=== PATIENT | female | born 1950 | race Caucasian/White ===

== ENCOUNTER 2024-05-12 15:35 | Outpatient (CLI) | payer MEDICARE, OTHER, SELFPAY ==
--- NOTE | 2024-05-12 16:05 | DI.RAD_ITS ---
Exam(s) XR KNEE RT 3V AP,LAT,DAVID EXAM: XR KNEE RT 3V AP,LAT,DAVID CLINICAL HISTORY: BILATERAL KNEE PAIN. TECHNIQUE: 2D digital imaging was performed. COMPARISON: No exams were available for comparison FINDINGS: 3 views No evidence of fracture. Small amount of increased joint fluid. There is advanced narrowing of the medial compartment of the right knee, almost [id number] and ther e marginal osteophytes in the medial compartment noted. Minimal narrowing of the lateral compartment . There are advanced degenerative changes in the patellofemoral compartment with joint space narrowing and also prominent bony excrescence-osteophyte off the posterior aspect of the superior pole of the p atella. The inferior pole the patella appears unremarkable. IMPRESSION: Advanced degenerative changes in the right knee as described above. DATA REPOSITORY: RADIATION DOSE DELIVERED:
--- NOTE | 2024-05-12 16:06 | DI.RAD_ITS ---
Exam(s) XR KNEE LT 3V AP,LAT,DAVID EXAM: XR KNEE LT 3V AP,LAT,DAVID CLINICAL HISTORY: BILATERAL KNEE PAIN. TECHNIQUE: 2D digital imaging was performed. COMPARISON: CR XR KNEE RT 3V AP,LAT,DAVID from 05/12/2024 FINDINGS: 3 views No evidence of fracture although there does appear to be a joint effusion. There is advanced degenerative change in the left knee. There is [id number] narrowing of the media l compartment and marginal osteophytes. Also advanced degenerative changes in the patellofemoral com partment. There is only mild narrowing of the lateral compartment but there are marginal osteophytes off the outer aspect of the lateral femoral condyle and lateral tibial plateau evident. No osseous lesions. IMPRESSION: Severe osteoarthritic degenerative changes in the left knee as described above. DATA REPOSITORY: RADIATION DOSE DELIVERED:
--- NOTE | 2024-05-12 16:06 | DI.RAD_ITS ---
Exam(s) XR STANDING ALIGNMENT EXAM: XR STANDING ALIGNMENT CLINICAL HISTORY: BILATERAL KNEE PAIN. TECHNIQUE: 2D digital imaging was performed. COMPARISON: No exams were available for comparison FINDINGS: 3 views There are advanced degenerative changes in both knees. In the medial compartment of the left knee th ere is [id number] narrowing. There are marginal osteophytes off the lateral compartment of the lef t knee but relatively preserved height of the lateral compartment. There is moderate-advanced narrow ing of the medial compartment of the opposite-right knee and relatively preserved height of the later al compartment of the right knee although with marginal osteophytes also evident at this level. Both hips appear unremarkable as do the ankles. Bone density is normal. No osseous lesions. IMPRESSION: Advanced osteoarthritic degenerative changes in both knees. The most prominent narrowing is bone-on- bone in the medial compartment of the left knee. DATA REPOSITORY: RADIATION DOSE DELIVERED:
== END 2024-05-12 15:36 | disposition home or self-care (01) ==
LOC: DIORS 15:36
PROVIDERS: PCP Nurse Practitioner Family; Referring Provider Nurse Practitioner Family; Visit Provider Physician Assistant
DX: M17.11 Unilateral primary osteoarthritis, right knee; M17.12 Unilateral primary osteoarthritis, left knee
CPT/HCPCS: 73562; 99214; 77073

== ENCOUNTER → 2024-12-15 09:16 | Outpatient (BNVA) | payer MEDICARE, OTHER, SELFPAY | PROVIDERS: PCP Nurse Practitioner Family; Referring Provider Nurse Practitioner Family; Visit Provider Student in an Organized Health Care Education/Training Program | DX: M17.0 Bilateral primary osteoarthritis of knee (principal) | CPT/HCPCS: 99214 ==

== ENCOUNTER → 2024-12-29 13:28 | Outpatient (BNVA) | payer MEDICARE, OTHER, SELFPAY | PROVIDERS: PCP Nurse Practitioner Family; Referring Provider Nurse Practitioner Family; Visit Provider Physician Assistant | DX: Z01.818 Encounter for other preprocedural examination (principal); M17.0 Bilateral primary osteoarthritis of knee | CPT/HCPCS: 99024 ==

== ENCOUNTER 2024-12-29 16:18 | Outpatient (REF) | payer MEDICARE, OTHER, SELFPAY ==
[2024-12-29 18:09] LABS: HCT 43.5 % (36.0-46.0); HGB 13.7 g/dL (11.2-15.7); MCH 28.2 pg (27.0-33.0); MCHC 31.5 % (32.0-36.0); MCV 90 fL (80-95); MPV 10.9 fL (8.0-11.0); Platelet Count 234 10^3/uL (130-400); RBC 4.86 10^6/uL (3.93-5.22); RDW 14.9 % (11.7-14.6); RDW-SD 49.1 fL; WBC 5.56 10^3/uL (4.4-10.8)
[2024-12-29 18:29] LABS: Anion Gap 9.2 mmol/L (3-11); BUN 27 mg/dL (7-18); CO2 27.8 mmol/L (21.0-32.0); Calcium 9.2 mg/dL (8.5-10.1); Chloride 106 mmol/L (98-107); Estimated GFR 59.49 (mL/min/1.73m2); Glucose 88 mg/dL (74-106); Potassium 4.0 mmol/L (3.5-5.1); Sodium 143 mmol/L (136-145)
== END 2024-12-29 16:19 | disposition home or self-care (01) ==
LOC: LBN 16:18
PROVIDERS: PCP Nurse Practitioner Family; Visit Provider Student in an Organized Health Care Education/Training Program
DX: M17.12 Unilateral primary osteoarthritis, left knee (principal); Z01.818 Encounter for other preprocedural examination
CPT/HCPCS: 80048; 85027

== ENCOUNTER 2025-01-11 07:15 | Observation (INO) | payer MEDICARE, OTHER, SELFPAY ==
[2025-01-11] VITALS (23 sets, daily range): BP systolic 102–149; BP diastolic 62–126; PULSE 67–98; RESP 13–35; TEMP 36.1–36.8; O2SAT 91–98; BMI 45.6
[2025-01-11] MEDS: Gabapentin 300 MG CAP PO ×2 (08:06→20:30)
[2025-01-11] MEDS: Acetaminophen 500 MG TAB 1000 MG PO ×2 (08:06→15:09)
[2025-01-11] MEDS: Celecoxib 200 MG CAP 400 MG PO (08:07)
--- NOTE | 2025-01-11 08:14 | W.ANESPRE ---
General Info Date of Service Date Performed: 01/11/25 Height: 5 ft 1.75 in Weight: 112.1 kg Body Mass Index (BMI): 45.6 Surgical Procedure: Operation Date: 01/11/25 09:40 Proposed Procedure Side Surgeon p Knee Total Arthroplasty w/OrthAlign Left Trevor Lugo MD Meds Allergies and Home Medications Allergies Allergy/AdvReac Type Severity Reaction Status Date / Time ciprofloxacin (From Cipro) Allergy Mild Unknown Verified 01/11/25 07:54 nickel Allergy Mild rash Verified 01/09/25 14:28 Penicillins Allergy Mild Unknown Verified 01/11/25 07:54 petrolatum,white (From Allergy Mild rash Verified 01/09/25 14:28 Petroleum Jelly) rice Allergy Mild Hives Verified 01/11/25 07:54 Tetracyclines Allergy Mild rash Verified 01/09/25 14:28 oxycodone AdvReac Mild GI upset Verified 01/09/25 14:28 Home Medication Medication Instructions Recorded albuterol sulfate 90 mcg/actuation 2 puff inhalation QID 04/26/24 aerosol inhaler ascorbic acid (vitamin C) 500 mg 500 mg PO DAILY 04/26/24 capsule meloxicam 15 mg tablet 15 mg PO DAILY 04/26/24 levothyroxine 137 mcg capsule 137 mcg PO DAILY 12/15/24 simvastatin 10 mg tablet 10 mg PO DAILY 12/15/24 vitamin D3 250 mcg (10,000 1 cap PO DAILY 12/29/24 unit)-vitamin K2 45 mcg capsule Current Visit Medications: Current Medications Generic Name Dose Route Start Last Admin Trade Name Freq PRN Reason Stop Dose Admin Acetaminophen 1,000 mg 01/11/25 06:00 01/11/25 08:06 Acetaminophen 500 Mg Tab PO 02/09/25 23:59 1,000 mg PREOP JONNATHAN Administration Acetaminophen 1,000 mg 01/11/25 08:30 Acetaminophen 500 Mg Tab PO 02/10/25 08:29 TID JONNATHAN Albuterol Sulfate 2 puff 01/11/25 08:30 Albuterol Hfa 8 Gm 60 Puff Inh IH 02/10/25 08:29 QID JONNATHAN Aspirin 81 mg 01/11/25 20:00 Aspirin E.C. 81 Mg Tabec PO 02/10/25 19:59 BID JONNATHAN Celecoxib 400 mg 01/11/25 06:00 01/11/25 08:07 Celecoxib 200 Mg Cap PO 02/09/25 23:59 400 mg PREOP JONNATHAN Administration Dexamethasone 4 mg 01/11/25 08:30 Dexamethasone 4 Mg Tab PO 01/12/25 08:31 DAILY JONNATHAN Docusate Sodium 100 mg 01/11/25 07:15 Docusate Sodium 100 Mg Cap PO 02/10/25 07:14 BID PRN PRN Constipation Gabapentin 300 mg 01/11/25 06:00 01/11/25 08:06 Gabapentin 300 Mg Cap PO 02/09/25 23:59 300 mg PREOP JONNATHAN Administration Gabapentin 300 mg 01/11/25 20:00 Gabapentin 300 Mg Cap PO 02/10/25 19:59 HS JONNATHAN Ringer's Solution 1,000 mls @ 80 mls/hr 01/11/25 06:00 IV 02/09/25 23:59 INFUSION JONNATHAN Cefazolin Sodium/Dextrose 2 gm in 50 mls @ 100 mls/hr 01/11/25 06:00 Ancef Duplex IVPB 02/09/25 23:59 PREOP JONNATHAN Tranexamic Acid/Sodium Chloride 1,000 mg in 100 mls @ 600 mls/hr 01/11/25 06:00 IVPB 02/09/25 23:59 PREOP JONNATHAN Cefazolin Sodium/Dextrose 1 gm in 50 mls @ 100 mls/hr 01/11/25 10:00 Ancef Duplex IVPB 01/12/25 02:29 Q8H JONNATHAN IV Miscellaneous Supplies 1 each 01/11/25 06:00 Iv Access IV 02/09/25 23:59 DIRECTED JONNATHAN Meloxicam 15 mg 01/11/25 08:30 Meloxicam 15 Mg Tab PO 02/10/25 08:29 DAILY [facility] Non-Formulary Medication 500 mg 01/11/25 08:30 Ascorbic Acid (Vitamin C) PO 02/10/25 08:29 DAILY JONNATHAN Non-Formulary Medication 137 mcg 01/11/25 08:30 Levothyroxine PO 02/10/25 08:29 DAILY [facility] Non-Formulary Medication 1 cap 01/11/25 08:30 Vitamin D3-Vitamin K2 PO 02/10/25 08:29 DAILY [facility] Ondansetron HCl 4 mg 01/11/25 07:15 Ondansetron 4 Mg/2 Ml Vial IVP 02/10/25 07:14 Q6H PRN PRN Nausea Oxycodone HCl 0 mg 01/11/25 07:15 Oxycodone 5 Mg Tab PO 02/10/25 07:14 Q3H PRN PRN Pain Pantoprazole Sodium 40 mg 01/11/25 07:30 Pantoprazole 40 Mg Tabcr PO 02/10/25 07:29 DAILY@0730 JONNATHAN Polyethylene Glycol 17 gm 01/11/25 07:15 Polyethylene Glycol 3350 17 Gm Packet PO 02/10/25 07:14 BID PRN PRN Constipation Simvastatin 10 mg 01/11/25 08:30 Simvastatin 10 Mg Tab PO 02/10/25 08:29 DAILY JONNATHAN Sodium Chloride 0 ml 01/11/25 06:00 Normal Saline Flush 10 Ml Syr IV 02/09/25 23:59 PRN PRN Sodium Chloride 0 ml 01/11/25 06:00 Normal Saline 10 Ml Vial IJ 02/09/25 23:59 DIRECTED PRN Sterile Water 0 ml 01/11/25 06:00 Water,Injection,Sterile 10 Ml Vial IJ 02/09/25 23:59 DIRECTED PRN Tranexamic Acid 1,300 mg 01/11/25 07:15 Tranexamic Acid 650 Mg Tab PO 01/11/25 07:16 ONCE ONE PFSH Active Problems Active Problems: Problem Status Onset Code Osteoarthritis of knees, bilateral Acute M17.0 Disorder of thyroid gland Acute E07.9 Chronic pain Chronic G89.29 Medical History Medical History No blood products Will take blood UNLESS: Pt. stated if she were to need blood for any reason, she does not want and will not take blood from a COVID vaccinated person and wanted it to be noted a s such. If they are vaccinated pt will take NO blood at all. Asthma Hypothyroid Medical History Comments:: Pt. stated if she were to need blood for any reason, she does not want and will not take blood from a COVID vaccinated person and wanted it to be noted a s such. If they are vaccinated pt will take NO blood at all. Surgical History Surgical History (Updated 01/11/25 @ 08:40 by Jackie Moe RN) History of abdominal surgery Repair of small bowel with mesh. History of colonoscopy H/O total vaginal hysterectomy History of arthroplasty of left shoulder (08/27/22) Tobacco Smoking/Tobacco Use Status: Never Passive smoking exposure: No Alcohol Alcohol Intake: never Substance Use Substance use: Never Substance use type: does not use Vital Signs and Lab Results Vital Signs Most Recent Vital Signs in EMR: Most Recent Vital Signs Temp Pulse Resp BP Pulse Ox 36.7 C 70 20 119/74 97 01/11/25 07:40 01/11/25 07:40 01/11/25 07:40 01/11/25 07:40 01/11/25 07:40 Lab Results Complete Blood Count: WBC, (4.4-10.8) 5.56 10^3/uL 12/29/24, 15:10 RBC, (3.93-5.22) 4.86 10^6/uL 12/29/24, 15:10 Hgb, (11.2-15.7) 13.7 g/dL 12/29/24, 15:10 Hct, (36.0-46.0) 43.5 % 12/29/24, 15:10 Plt Count, (130-400) 234 10^3/uL 12/29/24, 15:10 Complete Metabolic Panel: Sodium, (136-145) 143 mmol/L 12/29/24, 15:10 Potassium, (3.5-5.1) 4.0 mmol/L 12/29/24, 15:10 Chloride, (98-107) 106 mmol/L 12/29/24, 15:10 Carbon Dioxide, (21.0-32.0) 27.8 mmol/L 12/29/24, 15:10 BUN, (7-18) 27 mg/dL H 12/29/24, 15:10 Creatinine, (0.55-1.02) 1.0 mg/dL 12/29/24, 15:10 Est GFR (CKD-EPI 2020), (mL/min/1.73m2) 59.49 12/29/24, 15:10 Calcium, (8.5-10.1) 9.2 mg/dL 12/29/24, 15:10 Glucose, (74-106) 88 mg/dL 12/29/24, 15:10 Anesthesia Assessment and Plan Anesthesia History Personal History: No History of Anesthesia Complications Family History: No Family History of Anesthesia Complications and Family History Unknown Exercise Tolerance Exercise Tolerance: Metabolic Equivalents<4 Pertinent Negatives Pertinent Negatives: No Symptoms of GERD, No Major Cardiovascular Symptoms or Complaints, No Major Pulmonary Symptoms or Complaints and No History of CVA/TIA Cardiac & Pulmonary Exam Cardiac Exam: Normal S1/S2 Heart Sounds Pulmonary Exam: Clear Bilateral Breath Sounds Implantable Cardiac Device Does patient have a Pacemaker or an ICD?: No Airway Exam Known Difficult Airway: No Mallampati Class: 4 Mouth Opening: Normal (> 3cm) Thyromental Distance: Greater than 3 cm Neck Range of Motion: Full ROM Neck Circumference: Normal Teeth Condition: Normal Dentition (prominent inscisors with permanent bridges on either side, states it is stable) ASA Classification ASA Score: ASA 3 Emergency Case?: No NPO Status NPO Status: NPO Clears >2 hours, Solids >8 hours Anesthesia Plan Resuscitation Status: Full Code Anesthesia Technique: Spinal Anesthesia Airway Planned: Natural Airway Pain Management: Surgeon and patient request nerve block Monitors Used: Standard Monitors
[2025-01-11] MEDS: Lactated Ringers 1,000 ML 80 ML IV ×2 (08:30→15:18)
--- NOTE | 2025-01-11 08:54 | W.ANESNERVE ---
Nerve Block Single Injection Procedure Date and Time Date Performed: 01/11/25 Procedure Start: 08:40 Location Where Procedure Performed Procedure Location: Day Surgery Unit Reason Performed: Postoperative Analgesia Requesting Provider: Trevor Lugo Timeout Performed Timeout Performed: Yes Monitoring Used ECG, Blood Pressure and SpO2 Sterility Sterility: Hand Hygiene, Surgical Cap, Surgical Mask, Sterile Gloves, Sterile Drape/Sheet and Chlorhexidine Sedation Given During Procedure Sedation Given (Indicate Dose Given): Versed IV Dose:: 2mg Patient Mental Status Patient Mental Status: Sedate with meaningful communication Nerve Block 1st Nerve Block: Laterality: Left Block Type: Adductor Canal Ultrasound Image Saved?: Yes Needle / Catheter Used: 100mm SonoPlex II Local Anesthetic Bolus (Indicate Dose Given): Lidocaine used for local infiltration of skin, Bupivacaine 0.25% Dose:: 10ml and Exparel Dose:: 10ml Additives (Indicate Dose Given): None Ultrasound: Sterile probe cover and gel used Nerve Stimulator: Primary Nerve Stimulator Technique and No twitch or parasthesia noted < 0.5 mA Paresthesia: None Procedure Tolerated: No Complications and Patient tolerated well Procedure Outcome: Successful Performed By: Tamiko Maloney Supervised By: Mena Mathis
[2025-01-11] MEDS: ceFAZolin 2 GM/50 ML BAG IVPB (09:35)
--- NOTE | 2025-01-11 09:43 | W.PM.OP ---
Operative Note Operative Note PRE-OP DIAGNOSIS: Left Knee Osteoarthritis POST-OP DIAGNOSIS: same PROCEDURE: Left Total Knee Replacement with Intraoperative Navigation SURGEON: Trevor Lugo SYSTEMS DESIGNER: Mushtaq Burgos ANESTHESIA TYPE: Spinal Refer to Anesthesia Record ESTIMATED BLOOD LOSS: 150 PATHOLOGY: none sent TOURNIQUET TIME: 0 COMPLICATIONS: None Patient was transported to: PACU Patient's condition: stable Implants: 1. Depuy Attune Cementless Cruciate Retaining Femoral Component, Size 7 2. Depuy Attune Cementless Fixed Bearing Tibial Component, Size 5 3. Depuy Attune 7x10mm CR/FB Poly 4. Depuy Attune Patellar Component, Size 38 mm Indications: I have seen Aleah Nye in clinic for symptoms of LEFT knee arthritis, confirmed with radiographic findings. Aleah has exhausted nonoperative methods and was having significant limitations in daily function and desired better function and less pain. I discussed the technical details of a knee replacement. I explained the risks of the procedure to include, but not limited to, bleeding, infection, pain, stiffness, fracture, damage to nerves and vessels, damage to muscles and tendons, loosening, need for repeat procedure, blood clot and cardiopulmonary demise. Despite these risks, Aleah elected to proceed. Findings: There was significant signs of arthritis throughout the knee with large osteophytes throughout. Procedure Description: Aleah Nye was greeted in the preoperative holding area where the correct side was identified and marked. The consent was reviewed with the patient and signed. The history and physical was updated. All questions were answered. Preoperative mediacations were administered: Acetaminophen 1000mg, Celebrex 400mg, Gabapentin 300mg, and Oxycontin 10mg. An adductor canal block was then administered by the anesthesia team in the [facility]. She was taken back to the operating room. A spinal anesthestic was then administered. The patient was placed into the supine position on the operating room table. A nonsterile tourniquet was placed high onto the leg but only used for cementing. Posts were placed for positioning during the procedure. All bony prominences were well padded. Prophylactic antibiotics in the form of Cefazolin were administered. 1g of Tranxemic Acid was given intravenously within 30 minutes of incision. The left leg was then prepped with Chloraprep and draped in a standard fashion with impervious stockinette and extremity drape with Iodine impregnated skin protection. A timeout to confirm correct identity, side and site, procedure, allergies, anesthesia, and medical concerns was performed. With the knee in some flexion, a midline incision was made overlying the knee. Full thickness skin flaps were raised once the extensor mechanism was encountered. These were raised medially and laterally. Any bleeding was controlled with electrocautery. Once the extensor mechanism was fully exposed, a medial parapatellar arthrotomy was performed in a flexed position. All bleeding from the arthrotomy and the geniculate arteries was coagulated. A medial subperiosteal peel was performed with electrocautery to the midcoronal plane. Due to the significant varus deformity the entire medial tibial plateau was exposed. The fat pad was removed while keeping the patellar tendon protected. The anterior distal femur synovium was removed for later visualization. The ACL and PCL were resected and the anterior horn of the lateral meniscus was transected. The knee was then flexed with the patella everted. Large osteophytes from the tibia were removed. Large osteophytes from the femur were removed. A single starting pin was then placed 1cm anterior to the PCL insertion and the notch in the direction of the femoral head. The OrthoAlign device was applied over the pin. It was oriented to be in line with the epicondylar axis and the trochlear groove. It was then pinned into place. The navigation computer was then turned on and calibrated. The distal femur cut was set at 0.5 degrees varus and 3.5 degrees flexion. The distal femur cutting guide then was positioned for a 9mm cut. The distal femur was cut with an oscillating saw while protecting the soft tissues. The tibia was then addressed. The OrthoAlign device was placed over the tibial tubercle and medial tibia and secured into position. Once again, OrthoAlign was calibrated and then set for a 2 deg varus cut and 5 degrees of posterior slope. With this locked into position, the cut thickness stylus was used to assess cut thickness. The medial side, most involved side, was set for a 3mm cut. This was then held in position and pinned into place with 2 additional pins and a cross pin for stability. The medial and lateral collateral ligaments were protected and the cut was performed. With this completed, it was assessed and noted to be of appropriate dimensions. The guide and OrthoAlign was removed. The Orthoalign gap balancing device was then placed in extension. This was used to ensure that the ligaments were properly balanced with up to 2 to 3 mm laxity laterally compared medially. The extension gap was measured as 21mm. The knee was then brought into 90 degrees of flexion and the ligament public works commissioner was once again placed. Under the same amount of force the flexion gap was measured. The Attune specific jig was placed and the flexion gap was made to match the extension gap. The distal femur was then sized. The anterior stylus was placed onto the lateral ridge of the anterior femur. This indicated a size 7 femur. The 4-in-1 cutting guide was the placed. The posterior medial femur cut was evaluated and appeared of good thickness. The spacer block was inserted underneath the cutting guide and stability was confirmed in 90 degrees of flexion. An belem wing was used to confirm appropriate position of the anterior cut to avoid notching. This cutting guide was ensured to be flush on the cut surface and then pinned into place with headed pins. While protecting the soft tissues, quad tendon, and collateral ligaments, the anterior and posterior cuts were performed with a saw. The central two pins were removed and the posterior and anterior chamfers were cut next. The notch-cutting guide was placed. This was pinned to lateralize the femoral component as much as possible while keeping it flush on the cut surface. This was then pinned into position. A saw was used to make the notch cut. A rasp smoothed the cut surfaces. A trial femoral component was then inserted, impacted down to the cut surfaces, and the lug holes were drilled. A provisional trial tibial component was placed and the knee was brought through range of motion. The polyethylene was trialed until there was good flexion and extension with excellent stability to the medial and lateral collaterals. The patella was tracking without thumbs. The tibial cut surface was fully exposed. The medial and lateral menisci were removed. The tibia was then sized as a 5. The tibia had been previously marked during trialing to correspond to the center of the tibial component to help with rotation. The trial was aligned to this mushtaq, approximately rotated to the medial 1/3rd of the tibial tubercle. The trial was pinned into place. The tibia was prepared with a reamer and a keel punch. The knee was then brought into extension and the patella was measured as 24mm. Using the patellar clamp and cut guide, this was resected to a flat surface with at least 13mm of thickness remaining. The size 38mm patella fit the best. This was oriented and then clamped into position. The lugs were drilled. The trial components were removed. The final components, except for the polyethylene were opened on the back table. The periosteal and capsular tissues, especially posteriorly, around the knee were then systematically injected with a periarticular cocktail consisting of 200mg of Ropivacaine, 0.5mg of Epinephrine, and 30mg of Ketorolac, diluted to 100cc. The knee was thoroughly irrigated and dried. On the back table, with the implants opened, the cement was mixed. 2 batches of medium viscosity cement were prepared with vacuum assistance. After the cement was ready a small amount was placed on to the back side of the tibial component at the keel. A small amount was placed onto the posterior flange of the femur. Cement was manual pressurized and impregnated into the cut surface of the tibia. The tibial component was then inserted into the cut surface and impacted into position. Excess cement was removed and the component was reimpacted. Again, excess cement was removed and our attention was then turned to the femur. The femoral cut surface was once again dried and cement was manually impacted into the cut surface. The femoral component was lined with the lug holes and impacted. Excess cement was removed. It was ensured to be down against the cut surface. The trial polyethylene was then inserted and the leg was brought out into full extension for the duration of the cement curing process, approximately 15min. Cement was lastly manually impacted into the cut surface of the patella and the patellar button was clamped into position and held. During this process attention was turned to the gutters of the knee and for all interfaces for any excess cement. The knee was then thoroughly irrigated with Surgiphor Betadine solution. It was allowed to sit in the knee for 3 minutes before being irrigated out with saline. After the cement had finally cured, approximately 15min, the clamp was removed from the patella and the knee was taken through range of motion. A size 10mm polyethylene component provided the best range of motion and stability with less than 2mm gapping with medial and lateral stress and full extension without significant hyperextension. The patella was tracking with a no-thumbs technique. The trial poly was removed and once again the knee was checked for any loose, excess, or errant cement. The poly component was then inserted into position after cleaning and drying the tibial tray. The capsule was then reapproximated with a No. 2 Fiberwire and No. 1 Vicryl at multiple locations. The capsule was finally closed with a No. 2 Stratafix, barbed suture. Deep tissues were then reapproximated with 0 Vicryl and 2-0 Vicryl. The skin was closed with a running 3-0 Monocryl in a subcuticular fashion. This was reinforced with skin glue. A Mepilex silver dressing was applied along with a [id number] VALENTIN wrap. A CryoCuff was applied. Aleah Nye was transferred to the hospital bed without difficulty an suffering no apparent complication. Aleah Nye has a good prognosis. Physical therapy will start today and without restrictions, weight-bearing as tolerated. Aspirin 81mg BID will be used for DVT prophylaxis. Date of Procedure: 01/11/25
[2025-01-11] MEDS: TRANEXAMIC ACID/SOD. CHL. 1,000 MG/100 ML BAG 600 MG IVPB (09:44)
--- NOTE | 2025-01-11 10:02 | NUR.NOTE ---
0720: Pt. arrived in [facility] accompanied by alf Pedraza/sugar and Namrata Ramos RN. This nurse met pt. at scale where pt. stated to this nurse don't let Bobby near me this nurse asked who is Bobby. Pt. replied Dr. Lugo's helper. 0725:MD in room to consent pt. and said same thing to MD. MD explained to pt, that Bobby was part of the OR team today and his right hand man. MD sat down and had a conversation with pt. and made it clear that surgery could not happen today if Bobby is not part of the team and allowed pt. to choose if she was going to cancel or have surgery with Bobby on the team. Pt. nodded understanding and said ok and proceeded to sign consent in presence of , this nurse, Namrata Ramos, RN and Diya wooten/alf.Nursing Note:
[2025-01-11] MEDS: Ketorolac 30 MG/ML VIAL (10:14)
[2025-01-11] MEDS: ROPIvacaine 0.2% 200 MG/100 ML BAG (10:14)
[2025-01-11] MEDS: EPINEPHrine 1 MG/ML AMP pres-free (10:14)
--- NOTE | 2025-01-11 10:16 | NUR.NOTE ---
Nursing Note: 0715 I met patient in waiting room, accompanied by her friend Diya. Patient started ambulating to DSU with 2 walking canes. Upon entering doorway to DSU, patient stated don't let that Bobby near me to which this nurse asked who she was referring to. Patient stated that Bobby was Dr Lugo's PA. I did not respond to this statement. Patient continued to ambulate to scale to be weighed where Dao Badillo RN, primary nurse met patient. Patient reiterated the sentiment about Bobby again. Patient then ambulated to room 215 where Dao Badillo RN started intake and I, Namrata Whitley, assisted with vital signs. Dr Lugo then entered room and sat across from patient to discuss surgery and answer questions. Patient again made statement referring to Bobby Burgos, not to let him near her. Dr. Lugo was direct to state that Bobby would be assisting him to day in the operating room and patient given choice to proceed or cancel surgery. Pt responded yes to wanting to have surgery today. MD finished reviewing consent and answering questions. Patient then signed consent with MD. Dao Badillo RN and patient's friend Diya were also present in room.
--- NOTE | 2025-01-11 13:31 | W.ANESPOSTOP ---
Postoperative Evaluation Date, Time and Location Date Performed: 01/11/25 Time Performed: 12:36 Patient Location: PACU Vital Signs Most Recent Imported Vital Signs: Most Recent Vital Signs Temp Pulse Resp BP Pulse Ox 36.6 C 83 15 149/88 H 96 01/11/25 12:40 01/11/25 12:40 01/11/25 12:40 01/11/25 12:40 01/11/25 12:40 Pain Score Most Recent Pain Score: Most Recent Pain Score Pain Level 0 01/11/25 12:46 Assessment Mental Status: Awake (Alert & Oriented to Patient Baseline) Airway and Respiratory Function: Patent airway with normal (patient baseline) respiratory exam Cardiovascular Function: Hemodynamically Stable Hydration Status: Adequately Hydrated Nausea & Vomiting: No Nausea or Vomiting Pain: Pain is tolerable per patient Peripheral Nerve Block: Regional nerve block not resolved at time of post operative discharge
--- NOTE | 2025-01-11 14:05 | W.PC.ACHO ---
Registration Status: ADM AMAN Primary Language: Preferred Language: Medical / Surgical History (Last Reviewed 01/11/25 @ 08:01 by Safia Badillo) No blood products Asthma Hypothyroid (Last Reviewed 01/11/25 @ 08:01 by Safia Badillo) History of abdominal surgery History of colonoscopy H/O total vaginal hysterectomy History of arthroplasty of left shoulder (08/27/22) Most Recent Vital Signs Temperature 36.2 C L 01/11/25 13:50 Temperature Source Temporal Artery Scan 01/11/25 13:50 Pulse 72 01/11/25 13:50 Pulse Rhythm Regular 01/11/25 13:48 Pulse 83 01/11/25 12:40 Respiratory Rate 16 01/11/25 13:50 Respiratory Effort Normal 01/11/25 13:48 Respiratory Depth Normal 01/11/25 13:48 Respiratory Pattern Normal 01/11/25 13:48 Blood Pressure 138/74 01/11/25 13:50 Blood Pressure Mean 95 01/11/25 13:50 Blood Pressure Position Supine 01/11/25 08:56 Pulse Oximetry 95 01/11/25 13:50 Respiratory End-tidal CO2 32 01/11/25 12:40 Oxygen Delivery Method Room Air 01/11/25 13:50 Oxygen Flow Rate 0 01/11/25 13:50 Pain Level 0 01/11/25 13:50 Comment 0850: post block vitals. Pt. denies ringing in her ears, numbness around her mouth or metallic taste in mouth. MORTGAGE LOAN COMPUTATION CLERK and SRNA in room. Pt. on central monitor. This nurse in room. Call pablo within reach. 0927: Pt. taken via stretcher by Yolanda Hernandez RN to OR. 01/11/25 08:56 Allergies ciprofloxacin (From Cipro) Allergy (Mild, Verified 01/11/25 07:54) Unknown rash nickel Allergy (Mild, Verified 01/09/25 14:28) rash Penicillins Allergy (Mild, Verified 01/11/25 07:54) Unknown as a kid pt reports a seizure petrolatum,white (From Petroleum Jelly) Allergy (Mild, Verified 01/09/25 14:28) rash rice Allergy (Mild, Verified 01/11/25 07:54) Hives wild rice Tetracyclines Allergy (Mild, Verified 01/09/25 14:28) rash oxycodone Adverse Reaction (Mild, Verified 01/09/25 14:28) GI upset Active Medications Generic Name Dose Route Start Last Admin Trade Name Jamison PRN Reason Stop Dose Admin Acetaminophen 1,000 mg 01/11/25 06:00 01/11/25 08:06 Acetaminophen 500 Mg Tab PO 02/09/25 23:59 1,000 mg PREOP JONNATHAN Administration Celecoxib 400 mg 01/11/25 06:00 01/11/25 08:07 Celecoxib 200 Mg Cap PO 02/09/25 23:59 400 mg PREOP JONNATHAN Administration Gabapentin 300 mg 01/11/25 06:00 01/11/25 08:06 Gabapentin 300 Mg Cap PO 02/09/25 23:59 300 mg PREOP JONNATHAN Administration Ringer's Solution 1,000 mls @ 80 mls/hr 01/11/25 06:00 01/11/25 12:28 IV 02/09/25 23:59 80 mls/hr INFUSION JONNATHAN Infusion Cefazolin Sodium/Dextrose 2 gm in 50 mls @ 100 mls/hr 01/11/25 06:00 01/11/25 09:44 Ancef Duplex IVPB 02/09/25 23:59 Infused PREOP JONNATHAN Infusion Tranexamic Acid/Sodium Chloride 1,000 mg in 100 mls @ 600 mls/hr 01/11/25 06:00 01/11/25 09:54 IVPB 02/09/25 23:59 Infused PREOP JONNATHAN Infusion IV IV Catheter Type [Right Hand] Peripheral IV IV Catheter Gauge [Right Hand] 20 Intake and Output - 24 Hour Total 12/16/24 09:27 thru 01/11/25 13:48 Intake Total 1050 Output Total 150 Balance 900 Weight 112.1 kg Intake: IV 1050 Output: Estimated Blood Loss 150 Other: Urine Appearance Clear Emesis Description None Falls Risk Assessment History of Falls No History 01/11/25 13:48 Contributing Factors No Factors 01/11/25 13:48 Ambulatory Aids Uses ambulatory device 01/11/25 13:48 Tubes/Lines None 01/11/25 13:48 Gait Evaluation No gait disturbance 01/11/25 13:48 Cognition No cognitive impairment 01/11/25 13:48 Fall Total Score 15 01/11/25 13:48 Level of Risk Standard/Low Risk 01/11/25 13:48 Notes 01/11/25 10:16 Nursing Notes by Day,Namrata Nursing Note: 0750 I met patient in waiting room, accompanied by her friend Diya. Patient started ambulating to DSU with 2 walking canes. Upon entering doorway to DSU, patient stated don't let that Bobby near me to which this nurse asked who she was referring to. Patient stated that Bobby was Dr Lugo's PA. I did not respond to this statement. Patient continued to ambulate to scale to be weighed where Dao Badillo RN, primary nurse met patient. Patient reiterated the sentiment about Bobby again. Patient then ambulated to room 215 where Dao Badillo RN started intake and I, Namrata Whitley, assisted with vital signs. Dr Lugo then entered room and sat across from patient to discuss surgery and answer questions. Patient again made statement referring to Bobby Burgos, not to let him near her. Dr. Lugo was direct to state that Bobby would be assisting him to day in the operating room and patient given choice to proceed or cancel surgery. Pt responded yes to wanting to have surgery today. MD finished reviewing consent and answering questions. Patient then signed consent with MD. Dao Badillo RN and patient's friend Diya were also present in room. Initialized on 01/11/25 10:16 - END OF NOTE 01/11/25 10:02 Nursing Notes by Safia Badillo 0704: Pt. arrived in DSU accompanied by alf Pedraza/sugar and Namrata Ramos RN. This nurse met pt. at scale where pt. stated to this nurse don't let Bobby near me this nurse asked who is Bobby. Pt. replied Dr. Lugo's helper. 0778:MD in room to consent pt. and said same thing to MD. explained to pt, that Bobby was part of the OR team today and his right hand man. sat down and had a conversation with pt. and made it clear that surgery could not happen today if Bobby is not part of the team and allowed pt. to choose if she was going to cancel or have surgery with Bobby on the team. Pt. nodded understanding and said ok and proceeded to sign consent in presence of , ruddy nurse, Namrata Ramos RN and Diya Ramos. sugar/alf.Nursing Note: Initialized on 01/11/25 10:02 - END OF NOTE v v v v v v v v v Sending and/or Receiving Nurses: Please use comment section below to note any information pertinent to the patient hand-off not included above. Information / Comments: Pt s/p left total knee, pain controlled, pt alert, oriented, verbal, dressing dry and intact. Report received from: BUZZ Schrader
[2025-01-11] MEDS: Normal Saline Flush 10 ML SYR IV ×2 (15:19→20:31)
--- NOTE | 2025-01-11 16:45 | PT.INIE ---
PT Notes Physical Therapy Inpatient Initial Evaluation Date: 01/11/2025 Referring Doctor: BEN Marks PT Orders: PT CONSULT: S/P Ortho Surgery Precautions: Fall. Standard. Activity as tolerated. Patient Profile/Admitting Diagnosis: Aleah is a 74-year-old female with bilateral degenerative joint disease of the knees and is status post left total knee arthroplasty on postoperative day 0. PMHX: All Active Problems Osteoarthritis of knees, bilateral (Acute) Disorder of thyroid gland (Acute) Chronic pain (Chronic) Surgical History H/O total vaginal hysterectomy History of arthroplasty of left shoulder (08/27/22) Social History/Home Situation: Lives alone in a praivte home with 5 step to enter with rails on B sides. Retired nurse. Independent with all aspects of ADLs prior to surgery. Equipment Owned/DME: FWW Subjective: Mildly anxious about how she is going to manage at home alone but was happy to realize how much able she cold move after mobility assessment. Objective: General Observation: Cyrocuff to L knee. VALENTIN wraps to L knee. TEDS readjusted on L to minimize discomfort. Mental Status: Alert and oriented as to person, place, time, and purpose. Able to pay attention, focus, and respond appropriately. Pain: 3-4/10 in the L knee Vital Signs: Closely monitored by nursing staff ROM: Right Lower Extremity: Hip flexion WFL. Hip abduction WFL. Knee flexion WFL. Ankle dorsiflexion WFL. Ankle plantarflexion WFL. Left Lower Extremity: Hip flexion WFL. Hip abduction WFL. Knee flexion 20 degrees to 90 degrees. Knee extension -10 degrees. Ankle dorsiflexion WFL. Ankle plantarflexion WFL. Strength: Right Lower Extremity: Hip flexors 4/5. Hip abductors 4/5. Knee flexors 4/5. Knee extensors 4/5. Ankle dorsiflexors 4/5. Ankle plantarflexors 4/5. Left Lower Extremity: Hip flexors 4-/5. Hip abductors 4-/5. Knee flexors 3-/5. Knee extensors 3-/5. Ankle dorsiflexors 4-/5. Ankle plantarflexors 4-/5. Bed Mobility/Transfers: Minimal cueing provided for use of B hands as needed for support, movement sequence, AD management, and posture to reduce fall risk and minimize pain report Rolling stand by assist Sit to supine minimal assist Sit to stand contact guard assist with FWW Stand to sit contact guard assist with FWW Bed to bedside commode contact guard assist with FWW Bedside commode to bed side recliner contact guard assist with FWW Gait: Facilitated safe and correct performance of short distance ambulation covering 15 feet + 5 feet using the FWW with minimal antalgia noted but no LOB. Denied headache, chest pain and lightheadedness throughout session. Step-to gait pattern. Stairs: Not tested Balance: Static Sitting: Normal Dynamic Sitting: Normal Static Standing: Fair Dynamic Standing: Fair Special Tests: Mobility Limitations Standardized Measure [facility] AM-PAC 6 clicks Basic Mobility Inpatient Short Form: Raw Score: 18 CMS Score: 47% deficit Informed Consent/Education: Patient was instructed in purpose of PT consult and plan of care. Agreeable to proceed with established PT POC to achieve personal goals. Trained patient with correct performance of exercises below to maximize motor control, joint flexibility, soft tissue extensibility of the L knee musculature: Access Code: [email or web address] URL: [email or web address] Date: 01/11/2025 Prepared by: Haley Chew Exercises - Supine Quad Set - 1 x daily - 7 x weekly - 1 sets - 10 reps - 5 hold - Supine Heel Slide - 1 x daily - 7 x weekly - 1 sets - 10 reps - 5 hold - Supine Ankle Pumps - 1 x daily - 7 x weekly - 1 sets - 10 reps - 5 hold - Small Range Straight Leg Raise - 1 x daily - 7 x weekly - 1 sets - 10 reps - 5 hold - Seated March - 1 x daily - 7 x weekly - 1 sets - 10 reps - 5 hold Assessment: Lacks ACTIVE knee extension by 10 degrees due to discomfort. Patient was able to perform SLR on L about 20 degrees with mild discomfort. Patient tolerated short distance in-room ambulation 15 feet + 5 feet using her front-wheeled walker with mild antalgic gait. Patient complained of ALLY stocking on the R initially but symptom was resolved with adjustment of stocking. She was able to do self pericare after voiding urine onto bedside commode and walk from commode back to the chair. Patient was encouraged to stay up on the chair for her supper which arrived right after PT session. Patient presents with clinical signs and symptoms consistent with current/admitting diagnoses that have resulted to mobility limitations, gait instability, generalized weakness, and overall ADL decline as demonstrated by the following impairment level findings: 1. Decreased strength to L knee major muscle groups 2. Impaired standing balance 3. Impaired activity tolerance 4. Limitation of joint range of motion in L knee 5. Shortness of breath 6. Swelling Impairments are contributing to the following functional limitations: 1. Decline in bed mobility skills 2. Decline in transfer skills 3. Difficulty with ambulation without assistive device and physical assistance 4. Increased completion time for mobility ADL performance 5. Increased risk for falls 6. Difficulty with managing steps alone safely Patient is assessed as a 15201 moderate complexity based on the following: History:74 -year-old male with past medical history as indicated above Examination: Demonstrable impairment in strength, balance, and mobility level with underlying impairments and functional limitations as exhibited above as well as deficit score 47% utilizing the [facility] Mobility Inpatient Short Form Presentation: Evolving Decision Makin moderate complexity Goals: Goals X1 week 1. Supine-Sit independent 2. Sit-Supine independent 3. Sit-Stand independent 4. Stand-Sit independent with FWW 5. Bed-Chair independent with FWW 6. Chair-Bed independent with FWW 7. Independent gait on level surface with use of FWW for at least 300 feet without report of pain nor dyspnea 8. Independent stair negotiation while holding onto B rails for at least 3 steps without report of pain nor dyspnea 9. Independent with home exercise program 10. Good static and dynamic standing balance/tolerance Plan of Care/Treatment Plan: 1-2x/day, 7 days/week x 1 week. Plan of care has been reviewed with the GROUND SUPPORT EQUIPMENT MECHANIC providing the service under Physical Therapy direction. Initiate Physical Therapy intervention for pain management as needed, strengthening, bed mobility, transfers, gait, stairs, balance training, and use of assistive device. DISCHARGE RECOMMENDATIONS: HH PT vs OP PT after two weeks based on progress towards goals. TREATMENT CODE/TIME: 88065 x 20 minutes for 1 unit, 96340 x 16 minutes for 1 unit (16:45-15:21) Thank you for the opportunity to participate in the care of this patient. Haley Chew PT, DPT, CLT [facility] [place], [place]
[2025-01-11] MEDS: ceFAZolin 1 GM/50 ML BAG IVPB (19:22)
[2025-01-11] MEDS: Aspirin E.C. 81 MG TABEC PO (20:30)
[2025-01-11] MEDS: Simvastatin 10 MG TAB PO (20:30)
[2025-01-12 03:08] VITALS: BP 109/64; PULSE 68; RESP 18; TEMP 36.5; O2SAT 99
[2025-01-12] MEDS: Acetaminophen 500 MG TAB 1000 MG PO ×4 (03:18→21:18)
[2025-01-12] MEDS: ceFAZolin 1 GM/50 ML BAG IVPB (03:20)
[2025-01-12] MEDS: Levothyroxine 112 MCG TAB PO (06:17)
[2025-01-12] MEDS: Levothyroxine 50 MCG TAB 25 MCG PO (06:17)
--- NOTE | 2025-01-12 08:35 | PDOC.CMIN ---
Date of service: 01/12/25 Time of Service: 08:36 Care Management Initial Assmt Initial Assessment Reason for Hospitalization: Left knee replacement Functional Status/Living Situation Patient Presentation: Aleah was sitting in a recliner when CM met with her. She is s/p left knee replacement and overall feels she is doing quite but feels she could benefit from additional PT prior to discharge. After speaking to Dr. Lugo she is planning to discharge tomorrow around noon. Aleah resides alone in a home that she owns in [place]. She has stable housing and transportation, however is currently unable to drive. In addition, has had many repairs done to her home over the last couple of years (new windows, gutters and a roof.) Per pt, her late was 100% [facility] to [facility] passing. While she no longer qualifies for healthcare through [facility], she continues to receive her medications from them. She feels well supported by her mormon family. The family law specialist of her mormon, Diya, brought her to the hospital and plans to transport her home tomorrow. She has a few siblings whom live out of state, but no children. Her brother resides in [place] and she has a sister in [place] and another in [place]. Town of Residence: [place] Resides with: Alone Significant Other/Family: Out of area Natural Supports: Anabaptist family, Hematology Oncology Consultant Diya Has 1 brother and 2 sisters that live out of state Employment Status: Retired Instrumental Activities of Daily Living (ADLs): Independent Medications Medication Management: No Issues/Barriers identified Physical Functioning/Mobility Assistive Device: Wheelchair Walker Tub seat Advance Directives Advance Directives: Do you have an Advance Directive: N 04/20/24, 09:24 AD On File at [facility]: N 12/26/24, 06:26 Date Asked 01/11/25 01/11/25, 12:31 AD Date Reviewed COLST On File at [facility] COLST Date Scanned Code Status Resuscitation Status Full Code Insurance Coverage/Financial Issues Insurance: Medicare Part A & B - [id number] - [id number] Care Team Visit Care Team Role Provider Type Prosper Tadeo Primary Care Provider NURSE PRACTITIONER [facility]Patient [facility] Other Providers OTHER Trevor Lugo MD Admit Provider [facility] STAFF PHYSICIAN Attending Provider Discharge Potential Discharge Needs: PCP F/U Appt and Surgical F/U Appt Anticipated Barriers to Discharge: None Identified Patient/Family Education Needs: Review discharge instructions, discuss Ask Me Three Transportation: Private vehicle Plan: Aleah is planning to discharge home with [facility], tomorrow. She will follow up with community providers and continue per her discharge plan of care. The family law specialist of her mormon is planning to provide her transportation. Social Determinants of Health Screening Social Determinants of health last assessed in clinic: 01/12/25 Will the Patient Participate in the Screening?: Yes Do you worry about having a steady place to live?: yes What is your living situation today?: I have housing today, but am worried about losing it Problems where you live: no known problems In the past 12 months, have you had to go without electric, gas, oil or water in your home?: no 1. Within the past 12 months, we worried whether our food would run out before we got money to buy more.: Never true 2. Within the past 12 months, the food we bought just didn't last and we didn't have money to get more.: Never true Has lack of transportation kept you from medical appointments or from doing things needed for daily living?: no Has anyone in your life made you feel unsafe or unsupported?: no How hard is it for you to pay for the very basics like food, housing, medical care, and heating? Would you say it is:: Not hard at all Do you want help finding or keeping work or a job?: I do not need or want help If for any reason you need help with day-to-day activities such as bathing, preparing meals, shopping, managing finances, etc., do you get the help you need?: I don’t need any help How often do you feel lonely or isolated from those around you?: Never Do you speak a language other than Faroese at home?: No Does the patient want assistance with any of the above?: No Health Related Social Needs Health related social needs: housing instability, housed, with risk of homelessness ([phone]) [facility] All Active Problems History of total left knee replacement (Acute 01/11/25) Osteoarthritis of knees, bilateral (Acute) Disorder of thyroid gland (Acute) Chronic pain (Chronic) Medical History No blood products Will take blood UNLESS: Pt. stated if she were to need blood for any reason, she does not want and will not take blood from a COVID vaccinated person and wanted it to be noted a s such. If they are vaccinated pt will take NO blood at all. Asthma Hypothyroid Surgical History (Updated 01/11/25 @ 08:40 by Jackie Moe RN) History of abdominal surgery Repair of small bowel with mesh. History of colonoscopy H/O total vaginal hysterectomy History of arthroplasty of left shoulder (08/27/22) Social History Smoking/Tobacco Use Status: Never Smoking risk assessment performed?: Yes Alcohol Intake: never Drug use: Never Substance use type: does not use Housing: house Do you feel safe at home: Yes Do you feel safe in your relationship?: Yes Additional Social history: [employer]
[2025-01-12] MEDS: Dexamethasone 4 MG TAB PO (08:40)
[2025-01-12] MEDS: Aspirin E.C. 81 MG TABEC PO ×2 (08:40→21:18)
[2025-01-12] MEDS: Ascorbic Acid 500 MG TAB PO (08:40)
[2025-01-12] MEDS: Meloxicam 15 MG TAB PO (08:40)
[2025-01-12 08:42] VITALS: BP 94/67; PULSE 94; RESP 16; TEMP 36.1; O2SAT 98
--- NOTE | 2025-01-12 08:55 | PTTR_ITS ---
PT Notes Date: 01/12/2025 PRECAUTIONS: Fall. Standard. Activity as tolerated. SUBJECTIVE: Pt in recliner when approached for therapy this morning, agreed to participating with therapy session. OBJECTIVE: PAIN: 6/10 on left knee incision site VITALS: closely monitored by nursing Therapeutic Activities 14428: Direct one-on-one instruction in dynamic activities to improve functional performance. BED MOBILITY/TRANSFERS Sit-stand: SBA Stand-sit: SBA Bed-Chair: SBA Chair-bed: SBA Provided skilled cues and instruction on performance and technique throughout. Gait Training 45855: Direct one-on-one instruction and skilled instruction in: Employing an assistive device Modified weight-bearing status Movement sequencing Turning and movement with proper form Provided verbal cues for equipment management and technique Provided instruction in gait pattern Patient education regarding pacing and breathing techniques to maximize activity tolerance GAIT Assistive Device: FWW Weight bearing: FWD Assist: CGA Distance: 50'x2 seated rest break in between Deviation: Antalgic gait, heavy reliance on BUE STAIRS: Bilateral handrail Step to gait pattern CGA, 4x3 up/down Therapeutic Activities 37187 mins: instruction in dynamic activities with one on one patient contact by the provider to improve functional performance as follows: Therapeutic Exercises 42117: Direct one-on-one instruction in therapeutic exercises to develop strength, endurance, range of motion and flexibility. Transfer training going from Recliner to toilet FWW CGA, Toilet seat to recliner FWW CGA Exercises Access Code: [email or web address] URL: [email or web address] Date: 10/14/2022 Prepared by: Cal Chew Exercises - Supine Quad Set - 1 x daily - 7 x weekly - 1 sets - 10 reps - 5 hold - Supine Heel Slide - 1 x daily - 7 x weekly - 1 sets - 10 reps - 5 hold - Supine Ankle Pumps - 1 x daily - 7 x weekly - 1 sets - 10 reps - 5 hold - Small Range Straight Leg Raise - 1 x daily - 7 x weekly - 1 sets - 10 reps - 5 hold - Seated March - 1 x daily - 7 x weekly - 1 sets - 10 reps - 5 hold Provided skilled instruction in proper exercise performance Provided skilled manual cues to facilitate proper muscle recruitment and/or form: ASSESSMENT: Tolerated activity well given rest break in between distances. reports fatigue after session. PLAN: Continue with balance training, global strengthening and general conditioning for improved safety, mobility and activity tolerance until pt is ready for DC. TREATMENT CODE/TIME: 05263m1, 67584q8, [id number] 45mins ( 8:10-8:55am)
--- NOTE | 2025-01-12 12:27 | W.PM.PROGNOT ---
Date of Service Date of service: 01/12/25 Time of Service: 07:30 Assessment and Plan Assessment and plan (1) History of total left knee replacement: Status: Acute Assessment and plan: Aleah is a 74-year-old female who is status post left knee replacement. Overall she is doing well. And encouraged her on her progress as far. She should focus on her return to home and all the things she has to do to be successful at home. Will continue physical therapy. She is making good progress aspect should be of discharged to home with home health services tomorrow. Subjective Subjective Interval history since last seen: Aleah reports be doing well. She has been able to mobilize with physical therapy and with nursing. She does report some weakness about the left knee and some stiffness but overall she does not have the pain that she had in before the surgery. No acute changes. No chest pain or shortness of breath. Exam Narrative Exam Narrative: Sitting up in the chair. No acute distress. Alert and orient x 3. Evaluation of left lower extremity shows a clean dry and intact dressing. Khoa wrap is removed. She is able to demonstrate active knee extension although lacks about 10 degrees or so of terminal extension. She is able to flex eludes 95 degrees. Knee stable to varus and stress. There is some mild ecchymosis. Objective Last Vital Signs Temp 36.1 C L 01/12/25 08:42 Pulse 94 H 01/12/25 08:42 Resp 16 01/12/25 08:42 BP 94/67 L 01/12/25 08:42 Pulse Ox 98 01/12/25 08:42 Time Spent with Patient Time Spent with Patient: <25 minutes Time was spent: preparing to see the patient(eg.review tests), obtaining and/or reviewing separately otained hiistory and counseling the patient
--- NOTE | 2025-01-12 13:30 | PT.INTREAT ---
PT Notes Visit Reasons: OA L Knee Physical Therapy Inpatient Initial Evaluation Date: 01/12/2025 Precautions: Fall. Standard. WBAT through the L LE with AD. Subjective: Concerned about how she is going to get in and out of her bed at home. Patient states that she has a 30-inch bed. Pain reported at 3-4/10 in the L knee with weight bearing. Still feels sore. Objective: General Observation: Patient was seated on bedside chair. Swelling on L LE. Ecchymoses on L leg and, knee, and thigh Mental Status: Alert and oriented as to person, place, time, and purpose. Able to pay attention, focus, and respond appropriately. Pain: 3-4/10 in the L knee Vital Signs: Closely monitored by nursing staff. Bed Mobility/Transfers: Minimal cueing provided for use of B hands as needed for support, movement sequence, AD management, and posture to reduce fall risk and minimize pain report Rolling stand by assist Sit to supine minimal assist Sit to stand contact guard assist with FWW Stand to sit contact guard assist with FWW Bed to bedside commode contact guard assist with FWW Bedside commode to bed side recliner contact guard assist with FWW THERA EX: Re-trained patient with correct performance of exercises below to maximize motor control, joint flexibility, soft tissue extensibility of the L knee musculature: Access Code: [email or web address] URL: [email or web address] Date: 01/12/2025 Prepared by: Haley Chew Exercises - Supine Quad Set - 1 x daily - 7 x weekly - 1 sets - 10 reps - 5 hold - Supine Heel Slide - 1 x daily - 7 x weekly - 1 sets - 10 reps - 5 hold - Supine Ankle Pumps - 1 x daily - 7 x weekly - 1 sets - 10 reps - 5 hold - Small Range Straight Leg Raise - 1 x daily - 7 x weekly - 1 sets - 10 reps - 5 hold - Seated March - 1 x daily - 7 x weekly - 1 sets - 10 reps - 5 hold Gait: Facilitated safe and correct performance of short distance ambulation covering 75 feet + 75 feet using the FWW with minimal antalgia noted but no LOB. Denied headache, chest pain and lightheadedness throughout session. Step-to gait pattern. Minimal verbal cues given for hand placement, walker management, weight distribution, and posture to minimize pain report and reduce fall risk. Stairs: Guided patient with safe and crrect negotiation of 6 x 4-inch steps and 4 x 6-inch steps while holding onto B rails for support. Moderate verbal cues given for hand placement, walker management, weight distribution, increased knee flexion on the R during each ascent, and posture to minimize pain report and reduce fall risk. Balance: Static Sitting: Normal Dynamic Sitting: Normal Static Standing: Fair Dynamic Standing: Fair Assessment: Walking quality better though remains mildly antalgic, trunk forward lean now less as patient has better pain control. AROM to knee is also improved but pain at end range of 3-4/10 was still reported. Patient understands the use and benefit of the leg dry cans back tender in getting in and out of the bed. She will benefit from HH PT services in order o ensure a smooth transition to home. Plan of Care/Treatment Plan: Continue with HH PT to regain highest functional mobility level with the least restrictive device and to ensure a smooth transion to home. DISCHARGE RECOMMENDATIONS: HH PT TREATMENT CODE/TIME: 25252 x 30 minutes for 2 units, 23805 x 20 minutes for 1 unit (13:30-14:50)
--- NOTE | 2025-01-12 13:54 | CHAPLAIN ---
Aleah was up in the chair, watching news on her phone when I visited. She was pleasant and easily engaged in conversation. Aleah lives in [place] and belongs to the [employer]. Members of the hol[employer] will be giving her a ride home tomorrow. Aleah shared some personal history, telling me that she lived in [place], then [place], then moved to [place] and got . 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 I left when PT arrived to work with Aleah.
[2025-01-12 15:34] VITALS: BP 133/69; PULSE 86; RESP 16; TEMP 36; O2SAT 95
--- NOTE | 2025-01-12 15:47 | PHA.REVIEW2 ---
Pharmacy Admission Review Admission Clinical Review Admission Pharmacy Review: History of total left knee replacement (Acute 01/11/25) ciprofloxacin (From Cipro) Allergy (Mild, Verified 01/11/25 07:54) Unknown nickel Allergy (Mild, Verified 01/09/25 14:28) rash Penicillins Allergy (Mild, Verified 01/11/25 07:54) Unknown petrolatum,white (From Petroleum Jelly) Allergy (Mild, Verified 01/09/25 14:28) rash rice Allergy (Mild, Verified 01/11/25 07:54) Hives Tetracyclines Allergy (Mild, Verified 01/09/25 14:28) rash oxycodone Adverse Reaction (Mild, Verified 01/09/25 14:28) GI upset Resuscitation Status Full Code Height 5 ft 1.75 in Weight 112.1 kg Comments Comments/Follow Ups: POD#1 Left Total Knee Replacement with Intraoperative Navigation Pharmacy Admission Review Renal Dosing Medications needing adjustments: Reviewed (CrCl 58.97 mL/min) List of meds needing interventions: Current medications are okay Anticoagulation DVT Prophylaxis: Reviewed (SCDs/TEDs - POD#1) Opiate Usage Evaluate Pain Scale/Pains Meds: Reviewed (hydromorphone 2mg PO q3h PRN - 0mg/24hrs) Scheduled Bowel Reg ordered if on Opiates?: No (PRN docusate/Miralax) Relevant Labs Electrolytes, C-Reactive P, ESR: Reviewed (No new labs for today) Cardiac Review BP, HR, EF%: Reviewed (HR and BP WNL) QTc Review QTc: Reviewed (No EKG on file) IV to PO Switch IV Medications: Reviewed (ondansetron) Home Meds Home Med List reviewed: Reviewed Relevent Home Meds Not ordered & why?: vitamin D3/vitamin K2 Current Meds Current Medication Order Review: Intervened Comments: Discontinued preop orders Comments Comments/Follow Ups: POD#1 Left Total Knee Replacement with Intraoperative Navigation
[2025-01-12 19:36] VITALS: BP 111/66; PULSE 82; RESP 16; TEMP 36.7; O2SAT 96
[2025-01-12] MEDS: Simvastatin 10 MG TAB PO (21:18)
[2025-01-12] MEDS: Gabapentin 300 MG CAP PO (21:18)
[2025-01-13 03:53] VITALS: BP 99/44; PULSE 68; RESP 16; TEMP 36.5; O2SAT 93
[2025-01-13] MEDS: Levothyroxine 50 MCG TAB 25 MCG PO (06:34)
[2025-01-13] MEDS: Levothyroxine 112 MCG TAB PO (06:34)
--- NOTE | 2025-01-13 07:59 | PTTR_ITS ---
PT Notes Visit Reasons: OA L Knee Date: 01/13/2025 PRECAUTIONS: Fall. Standard. Activity as tolerated. SUBJECTIVE: Pt in bed when approached for therapy this morning, requested this therapist to remove SCD prior to participating with therapy. OBJECTIVE: PAIN: 3/10 on left knee incision site VITALS: closely monitored by nursing Therapeutic Activities 89068: Direct one-on-one instruction in dynamic activities to improve functional performance. BED MOBILITY/TRANSFERS Rolling L/R: Supervision Supine-sit: Supervision Sit-supine: Supervision Sit-stand: SBA Stand-sit: SBA Bed-Chair: SBA Chair-bed: SBA Provided skilled cues and instruction on performance and technique throughout. Gait Training 23527: Direct one-on-one instruction and skilled instruction in: Employing an assistive device Modified weight-bearing status Movement sequencing Turning and movement with proper form Provided verbal cues for equipment management and technique Provided instruction in gait pattern Patient education regarding pacing and breathing techniques to maximize activity tolerance GAIT Assistive Device: FWW Weight bearing: FWD Assist: CGA Distance: 50'x2 seated rest break in between Deviation: Antalgic gait, heavy reliance on BUE STAIRS: Bilateral handrail Step to gait pattern CGA, 4x3 up/down Therapeutic Activities 81440 mins: instruction in dynamic activities with one on one patient contact by the provider to improve functional performance as follows: Transfer training going from EOB to commode SBA, static standing while doing perineal care which was done by patient SBA, commode to recliner SBA, recliner to EOB SBA Therapeutic Exercises 64800: Direct one-on-one instruction in therapeutic exercises to develop strength, endurance, range of motion and flexibility. Transfer training going from Recliner to toilet FWW CGA, Toilet seat to recliner FWW CGA Exercises Access Code: [email or web address] URL: [email or web address] Date: 10/14/2022 Prepared by: Cal Chew Exercises - Supine Quad Set - 1 x daily - 7 x weekly - 1 sets - 10 reps - 5 hold - Supine Heel Slide - 1 x daily - 7 x weekly - 1 sets - 10 reps - 5 hold - Supine Ankle Pumps - 1 x daily - 7 x weekly - 1 sets - 10 reps - 5 hold - Small Range Straight Leg Raise - 1 x daily - 7 x weekly - 1 sets - 10 reps - 5 hold - Seated May - 1 x daily - 7 x weekly - 1 sets - 10 reps - 5 hold Provided skilled instruction in proper exercise performance Provided skilled manual cues to facilitate proper muscle recruitment and/or form: ASSESSMENT: Tolerated activity well given rest break in between distances. reports fatigue after session. PLAN: Continue with balance training, global strengthening and general conditioning for improved safety, mobility and activity tolerance until pt is ready for DC. TREATMENT CODE/TIME: 65240k4, 05736b7, 44221x1 60mins (7:45- 8:00/8:25-9:15am)
[2025-01-13] MEDS: Acetaminophen 500 MG TAB 1000 MG PO (08:16)
[2025-01-13] MEDS: Ascorbic Acid 500 MG TAB PO (08:17)
[2025-01-13] MEDS: Meloxicam 15 MG TAB PO (08:17)
[2025-01-13] MEDS: Aspirin E.C. 81 MG TABEC PO (08:17)
--- NOTE | 2025-01-13 08:38 | DSE_ITS ---
Date of service: 01/13/25 Time of Service: 08:38 DS: Diagnosis Discharge Diagnosis (1) History of total left knee replacement: Status: Acute Discharge Plan Disposition Patient Disposition: Home W/Home Health Services Condition: Improving Discharge Details Reason For Visit: OA L Knee Admit Date/Time: 01/11/25 07:15 Admit Provider: Trevor Lugo Attending Provider: Trevor Lugo Primary Care Provider: Prosper Tadeo Hospital Course Hospital Course: Patient was admitted to the medical/surgical floor following the procedure. The surgery was tolerated well without any notable medical, surgical, or anesthetic complications. Mobilization began postoperatively. [He][She] was voiding spontaneously. Vitals were stable. Physical therapy worked with the patient and was cleared for discharge home. No acute medical issues. Pain was controlled on oral regimen. Home Meds and New Rx's Prescriptions: New aspirin 81 mg tablet,delayed release (DR/EC) 81 mg PO BID Qty: 60 0RF tramadol 50 mg tablet 50 mg PO Q4H PRNQty: 18 0RF acetaminophen 500 mg tablet 1,000 mg PO Q8H PRN (Reason: pain) Qty: 90 3RF pantoprazole 40 mg tablet,delayed release (DR/EC) 40 mg PO DAILY Qty: 14 0RF gabapentin 300 mg capsule 300 mg PO QHS Qty: 14 0RF docusate sodium [Colace] 100 mg capsule 100 mg PO BID PRNQty: 10 0RF Continued albuterol sulfate 90 mcg/actuation HFA aerosol inhaler 2 puff inhalation QID ascorbic acid (vitamin C) 500 mg capsule 500 mg PO DAILY levothyroxine 137 mcg capsule 137 mcg PO DAILY simvastatin 10 mg tablet 10 mg PO DAILY vitamin D3-vitamin K2 250 mcg (10,000 unit)-45 mcg capsule 1 cap PO DAILY meloxicam 15 mg tablet 15 mg PO DAILY Qty: 30 0RF Discharge Instructions Additional Instructions: Total Knee Discharge Instructions Activity: The most important activity is to walk and to work on gentle motion (both flexion and extension). You should try to take short walks a few times a day. It is important that when resting you work on keeping the knee straight. Avoid putting a pillow behind the knee as this will encourage flexion. Work on range of motion exercises as provided by Physical Therapy. - Start outpatient physical therapy within 2 weeks. - You should wear the ALLY hose on both legs for 2 weeks. You may remove these at night. You may also use any compression sock in place of the ALLY hose. - Utilize [employer] to review exercises, see videos on exercises and obtain basic information pertaining to your surgery and your recovery. Dressing: Remove the Khoa wrap by 2 days after your surgery and put on the ALLY stocking given to you from the hospital. Keep the surgical dressing (underneath the KHOA wrap) in place for at least one week. After the first week it may be removed and replaced with light gauze and tape or nothing. The wound and dressing may get wet after 3 days but avoid soaking the dressing or otherwise it will need to be changed. Many people prefer covering the dressing with cling wrap (saran wrap) to minimize it from getting soaked. If it gets wet, just pat dry. If it starts to peel off then it will need to be changed. Medications: - You should take Tylenol and anti-inflammatory Meloxicam as your primary pain control medications. - You have been prescribed a stronger pain medication Tramadol for breakthrough pain, take as needed as prescribed. - You have also been prescribed a stomach acid reduction agent Pantoprozole to help reduce stomach acid and reflux. - You have been prescribed Gabapentin to take at night for restlessness and nerve pain. - You will be taking Aspirin 81mg twice a day for DVT prevention unless instructed otherwise. - If you have constipation you should take Colace or Miralax (both [id number]). It takes most people 3-4 days to have a bowel movement. Follow-up: 2 weeks If you have any acute concerns or questions, please do not hesitate to contact the office at [phone]. You may contact Dr. Lugo with any questions after hours through the hospital at [phone] or on his cell phone at [phone]. 1. Encounter Date and Reason I certify that Aleah Dalton was seen by Trevor Lugo MD on 01/13/25 and that I had a [id number] encounter with this patient that meets the physician face to face encounter requirements. 2. Clinical Findings Supporting Skilled Need and Homebound Status I certify that home health services are medically necessary, include either intermittent mcc and/or physical/speech therapy, and that this patient is homebound in that absences from the home require considerable and taxing effort and are infrequent or of short duration, or are attributable to the need to receive medical care. [X] (a) Attached documentation from encounter provides clinical findings supporting skilled need and homebound status (including what assistance patient requires to leave the home). The encounter with the patient was in whole, or in part, for the following medical condition, which is the primary reason for home health care: OA L Knee Assisted: Physical Therapy: I recommend home health physical and Occupational Therapy to assist with and return to home following left knee replacement surgery. She has notable weakness and gait dysfunction from her previous knee arthritis as well as her recent surgery. She has no formal restrictions and is weightbearing as tolerated with assistive devices. These therapy services should focus on independent mobilization and ADL performance including quadriceps activation and strengthening for the purpose of ambulation.. Speech Therapy: Homebound: And is unable to leave her home unassisted due to weakness and gait dysfunction. 3. Certification and Authentication I certify that I composed the above information based on my clinical judgement relating to this patient's medical condition and, if applicable, clinical findings communicated to me by the NPP or inpatient physician who performed the Home Health Referral. All further orders will be obtained through Dr. Lugo Referrals: Trevor Lugo MD [ [facility] STAFF PHYSICIAN, Orthopaedic Surgical] Activity:: Activity as Tolerated Equipment/Supplies:: Walker Diet:: As Tolerated Discharge Orders Discharge Orders: Discharge Order (Routine); Ordered 01/13/25 Ordered By: Trevor Lugo DS: Summary Time Spent with Patient providing and/or coordinating discharge services: Less than 30 minutes Status at Discharge Functional status at discharge: independent ambulation Overall status at discharge: patient is progressing back to baseline Mental Status: mental status grossly normal Speech and Movement: speech and movement normal Mood: congruent mood Affect: normal affect Quality:SDOH Health Related Social Needs: Health related social needs risk of homeless Exam Narrative Exam Narrative: Sitting in the chair. No acute distress. Alert and orient x 3. Dressing of the left knee is clean dry and intact. There is some mild ecchymosis and swelling. She does have active knee extension against resistance. Intact ankle dorsiflexion, ankle plantarflexion, great toe extension, great toe flexion. Psych Mental Status: mental status grossly normal Speech and Movement: speech and movement normal Mood: congruent mood Affect: normal affect DS: Data Vitals/I&O Vitals and I&O: Vital Signs Temperature 36.5 C 01/13/25 03:53 Temperature Source Temporal Artery Scan 01/13/25 03:53 Pulse 68 01/13/25 03:53 Pulse Rhythm Regular 01/11/25 13:48 Pulse 83 01/11/25 12:40 Respiratory Rate 16 01/13/25 03:53 Respiratory Effort Normal 01/11/25 13:48 Respiratory Depth Normal 01/11/25 13:48 Respiratory Pattern Normal 01/11/25 13:48 Blood Pressure 99/44 L 01/13/25 03:53 Blood Pressure Mean 62 01/13/25 03:53 Blood Pressure Position Supine 01/11/25 08:56 Pulse Oximetry 93 01/13/25 03:53 Respiratory End-tidal CO2 32 01/11/25 12:40 Oxygen Delivery Method Room Air 01/13/25 03:53 Oxygen Flow Rate 0 01/13/25 03:53 Pain Level 3 01/13/25 03:53 Comment 0850: post block vitals. Pt. denies ringing in her ears, numbness around her mouth or metallic taste in mouth. X RAY SERVICE TECHNICIAN and SRNA in room. Pt. on central monitor. This nurse in room. Call pablo within reach. 0927: Pt. taken via stretcher by Yolanda Hernandez RN to OR. 01/11/25 08:56 Intake & Output 01/12/25 01/12/25 01/13/25 11:59 23:59 11:59 Intake Total 40 / 2901 2861 / 2901 200 / 200 Output Total 500 / 2150 1650 / 2150 900 / 900 Balance -460 / 751 1211 / 751 -700 / -700 Intake: IV 40 / 40 Oral 2861 / 2861 200 / 200 Output: Urine 500 / 2150 1650 / 2150 900 / 900 Other: Urine Color Yellow Yellow Yellow Urine Appearance Clear Clear Clear Urine Odor None Strong Comment pt voided on bedside commode, min one assist Pt has stress inc. of urine, CORONER helped pt changed pads and underwear. PFSH All Active Problems History of total left knee replacement (Acute 01/11/25) Osteoarthritis of knees, bilateral (Acute) Disorder of thyroid gland (Acute) Chronic pain (Chronic) Medical History No blood products Will take blood UNLESS: Pt. stated if she were to need blood for any reason, she does not want and will not take blood from a COVID vaccinated person and wanted it to be noted a s such. If they are vaccinated pt will take NO blood at all. Asthma Hypothyroid Surgical History History of abdominal surgery Repair of small bowel with mesh. History of colonoscopy H/O total vaginal hysterectomy History of arthroplasty of left shoulder (08/27/22) Social History Smoking/Tobacco Use Status: Never Smoking risk assessment performed?: Yes Alcohol Intake: never Drug use: Never Substance use type: does not use Housing: house Do you feel safe at home: Yes Do you feel safe in your relationship?: Yes Additional Social history: [facility] Time Spent with Patient Time Spent with Patient: <45 minutes Time was spent: preparing to see the patient(eg.review tests), obtaining and/or reviewing separately otained hiistory and counseling the patient
[2025-01-13 08:47] VITALS: BP 135/83; PULSE 83; RESP 16; TEMP 36.8; O2SAT 96
--- NOTE | 2025-01-13 11:14 | PDOC.CMDIS ---
Date of service: 01/13/25 Time of Service: 11:14 LACE Index Scoring Tool Questions: Length of Stay (in days): 2 Was the patient admitted via the E.D.?: No E.D. Visits: 0 Answers: Total Score: 2 Risk of Readmission: Low Risk Care Management Discharge Plan Reason for Hospitalization: left total knee replacement Discharge Plan: Aleah is discharged home today with new services of PT through [facility]. She will f/u with her PCP and the orthopedic surgeon and continue per her plan of care. Aleah will have help from friends at home, and will be transported home by a friend. Patient/Family Education Needs: Review of discharge instructions, activity, limitations and discuss Ask me 3. Services Needed at Discharge: Home Health Care Services ([facility]) SDOH Health Related Social Needs: Health related social needs risk of homeless
== END 2025-01-13 13:10 | disposition home health service (06) ==
LOC: SUR 12:31 → MS 13:09
PROVIDERS: Admitting Provider Student in an Organized Health Care Education/Training Program; PCP Nurse Practitioner Family; Responsible Provider Student in an Organized Health Care Education/Training Program; Visit Provider Student in an Organized Health Care Education/Training Program
PROC: (CPT 27447; principal; 2025-01-11 09:30)
DX: M17.12 Unilateral primary osteoarthritis, left knee (principal); G89.18 Other acute postprocedural pain; M25.562 Pain in left knee; Z79.899 Other long term (current) drug therapy; E03.9 Hypothyroidism, unspecified; J45.909 Unspecified asthma, uncomplicated; Z68.42 Body mass index [BMI] 45.0-49.9, adult; E66.01 Morbid (severe) obesity due to excess calories
CPT/HCPCS: 27447; 20985; 64447; 97110; 97116; 97162; 97530; C1776; G0378; J0166; J0665; J0666; J0690; J1100; J1885; J2250; J2371; J2401; J2704; J2795; J8540

== ENCOUNTER 2025-01-23 11:26 | Outpatient (CLI) | payer MEDICARE, OTHER, SELFPAY ==
--- NOTE | 2025-01-23 09:15 | DI.RAD_ITS ---
Exam(s) XR KNEE LT 1V XR STANDING ALIGNMENT EXAM: XR STANDING ALIGNMENT and XR knee LT 1 V CLINICAL HISTORY: 1ST POST OP S/P L TKA. TECHNIQUE: 2D digital imaging was performed. Six images were obtained. COMPARISON: CR XR KNEE RT 3V AP,LAT,DAVID from 05/12/2024 CR XR KNEE LT 3V AP,LAT,DAVID from 05/12/2024 CR XR STANDING ALIGNMENT from 05/12/2024 FINDINGS: BONES: The hips are well maintained. In the right knee, there are marked degenerative changes present characterized by joint space narrowing and osteophytes. The findings are most marked in the medial femoral tibial joint. In the left knee, there is a left total knee arthroplasty. The orthopedic mackay rdware appears in good position. There are no suspicious lucencies or around the orthopedic hardware. The ankles are well maintained.There is no significant leg length discrepancy. SOFT TISSUE: Normal. IMPRESSION: 1. Marked osteoarthritis of the right knee. 2. Interval placement of a left total knee arthroplasty. DATA REPOSITORY: RADIATION DOSE DELIVERED:
== END 2025-01-23 11:27 | disposition home or self-care (01) ==
LOC: DIORS 11:27
PROVIDERS: PCP Nurse Practitioner Family; Visit Provider Student in an Organized Health Care Education/Training Program
DX: Z47.1 Aftercare following joint replacement surgery (principal); Z96.652 Presence of left artificial knee joint
CPT/HCPCS: 99024; 73560; 77073

== ENCOUNTER → 2025-03-06 10:35 | Outpatient (BNVA) | payer MEDICARE, OTHER, SELFPAY | PROVIDERS: PCP Nurse Practitioner Family; Referring Provider Nurse Practitioner Family; Visit Provider Student in an Organized Health Care Education/Training Program | DX: Z47.1 Aftercare following joint replacement surgery (principal); Z96.652 Presence of left artificial knee joint | CPT/HCPCS: 99024 ==